=== PATIENT | male | born 1965 | race Caucasian/White ===

== ENCOUNTER 2018-07-05 14:08 | Emergency (ER) | payer OTHER, SELFPAY ==
[2018-07-05 14:19] VITALS: BP 146/92; PULSE 95; RESP 17; TEMP 36.3; O2SAT 99
[2018-07-05 14:48] LABS: Add Manual Diff / Slide Review NO; Basophils Absolute Auto 0 /uL (0-100); Basophils Percent Auto 0.4 % (0-2); Eosinophils Absolute Auto 0 /uL (0-450); Eosinophils Percent Auto 0.2 % (2-4); Hematocrit 43.3 % (41-53); Hemoglobin 14.9 g/dL (13.5-17.5); Lymphocytes Absolute Auto 1300 /uL (1100-4500); Lymphocytes Percent Auto 17.1 % (25-40); Mean Corpuscular HGB Conc 34.5 % (30-36); Mean Corpuscular Volume 89.9 fL (80-100); Monocytes Absolute Auto 300 /uL (0-900); Monocytes Percent Auto 4.4 % (3-14); Neutrophils Absolute Auto 6100 /uL (1500-7000); Neutrophils Percent Auto 77.9 % (50-75); Platelet Count 251 X10^3/uL (150-400); Red Blood Cell Count 4.82 X10^6/uL (4.5-5.9); Red Cell Distribution Width 12.5 % (11.6-14.8); White Blood Cell Count 7.8 X10^3/uL (4.5-11.0)
--- NOTE | 2018-07-05 14:50 | ED.NAVMDI ---
HPI - Nausea/Vomiting/Diarrhea General Chief complaint: Nausea/Vomiting/Diarrhea Stated complaint: faint, light headed, frequent urinatation, agitate Time Seen by Provider: 07/05/18 14:10 Source: patient Mode of arrival: ambulatory Limitations: no limitations History of Present Illness HPI Narrative: 52M with recent attempt to perform a water fast to lose weight presents with (). He drank 4L of water daily for about a weak and started eating again about 4 days ago. He started with clear liquids and felt great, as he advanced his diet his developed ongoing episodes of feeling ok and then lethargic, fuzzy thoughts, panic, and chest tightness. He looked online and thought it was likely hypoglycemia so he started rounding out his diet a bit more. Last night he felt very panicky and this morning had a breakdown and was very tearful. He presents with minimal symptoms. He initially presented to the local fire department and he had a normal glucose but was encouraged to present for evaluation. Related Data Home Medications Medication Instructions Recorded Confirmed albuterol sulfate 90 mcg/actuation 1 inhalation INHALATION Q4-6H PRN 04/08/18 04/08/18 breath activated powder inhaler medical marijuana PO DAILY 04/08/18 04/08/18 Allergies Allergy/AdvReac Type Severity Reaction Status Date / Time No Known Drug Allergies Allergy Unverified 04/08/18 14:46 Review of Systems Review of Systems ROS Unobtainable: All systems reviewed & are unremarkable except as noted in HPI and below Constitutional Denies chills, Denies fever(s), Denies lethargy and Denies weakness Eyes Denies change in vision, Denies eye discharge, Denies irritation and Denies loss of vision ENT Ears, Nose, Mouth, and Throat: Denies change in voice, Denies neck pain and Denies sore throat Cardiovascular Denies chest pain, Denies irregular heart rhythm, Denies lightheadedness, Denies palpitations, Denies dyspnea, Denies dyspnea on exertion and Denies orthopnea Respiratory Denies cough, Denies dyspnea, Denies dyspnea on exertion and Denies wheezing Gastrointestinal Gastrointestinal: Denies abdominal pain, Denies change in bowel habits, Denies diarrhea, Denies nausea and Denies vomiting Genitourinary Denies hematuria, Denies flank pain, Denies urinary incontinence and Denies urinary urgency Musculoskeletal Denies neck pain Integumentary/Breasts Denies pruritus, Denies erythema, Denies rash and Denies wounds Neurologic Denies confusion, Denies loss of vision and Denies weakness Psychiatric Denies anxiety, Denies confusion, Denies depression, Denies homicidal ideation and Denies suicidal ideation Endocrine Denies palpitations Hematologic/Lymphatic Denies easy bruising Allergic/Immunologic Denies wheezing [facility] Social History Smoking Status: Former smoker Exam Narrative Exam Narrative: GENERAL: 52-year-old male, appears younger than stated age, bit anxious This is a well-nourished, well-developed patient, in mild distress. HEAD: Atraumatic. Normocephalic. No temporal or scalp tenderness. EYES: Pupils equal round and reactive. Extraocular motions intact. No scleral icterus. No injection or drainage. ENT: Nose without bleeding, purulent drainage or septal hematoma. Throat without erythema, tonsillar hypertrophy or exudate. Uvula midline. Airway patent. NECK: Trachea midline. No JVD or lymphadenopathy. Supple, nontender, no meningeal signs. CARDIOVASCULAR: Regular rate and rhythm without murmurs, gallops, or rubs. RESPIRATORY: Clear to auscultation. Breath sounds equal bilaterally. No wheezes, rales, or rhonchi. GASTROINTESTINAL: Abdomen soft, non-tender, nondistended. No hepato-splenomegaly, or palpable masses. No guarding. EXTREMITIES: No clubbing, cyanosis, or edema. No joint tenderness, effusion, or edema noted. BACK: Nontender without deformity or crepitance. No flank tenderness. NEURO: AOx3. SKIN: No rash or erythema. Initial Vital Signs Initial Vital Signs: Vital Signs Temperature 97.4 F L 07/05/18 14:19 Pulse Rate 95 H 07/05/18 14:19 Respiratory Rate 17 07/05/18 14:19 Blood Pressure 146/92 H 07/05/18 14:19 Pulse Oximetry 99 07/05/18 14:19 Course Orders Ordered: ED Orders 07/05/18 14:29 EKG-12 Lead Stat 07/05/18 14:35 Complete Blood Count AUTO DIFF Stat Comprehensive Metabolic Panel Stat Troponin & CK Cardiac Panel Stat Vital Signs - 8 hr 07/05/18 14:19 07/05/18 15:17 Temperature 97.4 F L Pulse Rate 95 H 78 Respiratory Rate 17 21 Blood Pressure 146/92 H Blood Pressure [Right Arm] 128/90 Pulse Oximetry 99 98 MDM - Nausea/Vomiting/Diarrhea Lab Data Result diagrams: 07/05/18 14:35 07/05/18 14:35 Lab Results 07/05/18 07/05/18 07/05/18 Range/Units 14:35 14:35 14:35 WBC 7.8 (4.5-11.0) X10^3/uL RBC 4.82 (4.5-5.9) X10^6/uL Hgb 14.9 (13.5-17.5) g/dL Hct 43.3 (41-53) % MCV 89.9 (80-100) fL MCH 31.0 (26-34) PG MCHC 34.5 (30-36) % RDW 12.5 (11.6-14.8) % Plt Count 251 (150-400) X10^3/uL Neut % (Auto) 77.9 H (50-75) % Lymph % (Auto) 17.1 L (25-40) % [place] % (Auto) 4.4 (3-14) % Eos % (Auto) 0.2 L (2-4) % Baso % (Auto) 0.4 (0-2) % Neut # (Auto) 6100 (5574-8767) /uL Lymph # (Auto) 1300 (4863-8572) /uL [place] # (Auto) 300 (0-900) /uL Eos # (Auto) 0 (0-450) /uL Baso # (Auto) 0 (0-100) /uL Sodium 139 (137-145) mmol/L Potassium 4.3 (3.4-5.1) mmol/L Chloride 102 (98-107) mmol/L Carbon Dioxide 26 (22-32) mmol/L BUN 10 (9-20) mg/dL Creatinine 0.60 L (0.66-1.25) mg/dL Estimated GFR > 60.0 (>60) mL/min BUN/Creatinine Ratio 16.7 (6-22) Glucose 124 H (70-100) mg/dL Calcium 9.9 (8.4-10.2) mg/dL Total Bilirubin 0.5 (0.2-1.3) mg/dL AST 18 (17-59) IU/L ALT 26 (21-72) IU/L Alkaline Phosphatase 61 (38-126) U/L Total Creatine Kinase 92 (55-170) U/L CK-MB (CK-2) TNP CK-MB (CK-2) Rel Index TNP Troponin I < 0.012 (0.01-0.034) ng/mL Total Protein 7.7 (6.3-8.2) g/dL Albumin 5.0 (3.5-5.0) g/dL Globulin 2.7 (1.7-4.1) g/dL Albumin/Globulin Ratio 1.9 (1.0-2.8) Urine Dip Bedside Urine Glucose Negative Bedside Urine Bilirubin - Negative Bedside Urine Ketone - Negative Urine Specific [place] 1.015 Bedside Urine Occult Blood - Negative Bedside Urine pH 8.0 Bedside Urine Protein - Negative Bedside Urine Urobilinogen - Negative Bedside Urine Nitrite - Negative Bedside Urine Leukocytes - Negative Esterase Discharge Plan Departure Patient Disposition: Home Clinical Impression: Acute dehydration Malnutrition Qualifiers: Malnutrition type: protein-calorie malnutrition Protein-calorie malnutrition severity: mild Qualified Code(s): E44.1 - Mild protein-calorie malnutrition Instructions: DI for Dehydration -- Adult Activity Restrictions/Additional Instructions: 1. Drink plenty of fluids with frequent small sips. 2. For the next 24 hours a clear liquid diet is advised. After that please employ a brat diet which would include bananas, rice, apples, toast. 3. Please take medications as directed. 4. Please follow-up with your doctor in the next 1-2 days. Call the office for an appointment. 5. Please return to the emergency Department for any worsening or persistent symptoms, such as increasing pain or fever. Prescriptions: No Action medical marijuana PO DAILY RF: 0 albuterol sulfate 90 mcg/actuation aerosol powdr breath activated 1 inhalation INHALATION Q4-6H PRNRF: 0 Referrals: Elida Nettles PA-C [Primary Care Provider] -
--- NOTE | 2018-07-05 14:58 | PC.NURSE ---
Pt started a water fast 11 days ago. He began introducing food into his diet 5 days ago and is concerned he did this too abruptly. Has not slept in 2 days, having intermittent episodes of anxiety, shakiness, chest tightness, shortness of breath, and feeling clammy. States he figured he was having abnormal blood sugar levels and self treated at home with glucose tablets, peanut butter, and crackers.
[2018-07-05 14:59] LABS: Alanine Aminotransferase 26 IU/L (21-72); Albumin Globulin Ratio 1.9 (1.0-2.8); Alkaline Phosphatase 61 U/L (38-126); Aspartate Aminotransferase 18 IU/L (17-59); BUN Creatinine Ratio 16.7 (6-22); Bilirubin Total 0.5 mg/dL (0.2-1.3); Blood Urea Nitrogen 10 mg/dL (9-20); Calcium 9.9 mg/dL (8.4-10.2); Carbon Dioxide 26 mmol/L (22-32); Chloride 102 mmol/L (98-107); Estimated Glomerular Filt Rate > 60.0 mL/min (>60); Globulin 2.7 g/dL (1.7-4.1); Glucose 124 mg/dL (70-100); HEMOLYSIS < 15 (0-50); Potassium 4.3 mmol/L (3.4-5.1); Sodium 139 mmol/L (137-145); Total Protein 7.7 g/dL (6.3-8.2)
[2018-07-05 15:17] VITALS: BP 128/90; PULSE 78; RESP 21; O2SAT 98
[2018-07-05 15:22] LABS: Creatine Kinase 92 U/L (55-170)
[2018-07-05 15:35] LABS: Troponin I < 0.012 ng/mL (0.01-0.034)
--- NOTE | 2018-07-05 15:57 | PC.NURSE ---
Gave patient a banana for snack.
[2018-07-05 16:05] VITALS: PULSE 78; RESP 16; O2SAT 100
== END 2018-07-05 16:06 | disposition home or self-care (01) ==
PROVIDERS: Internal Medicine; Emergency Provider Emergency Medicine; Family Provider Family Medicine; PCP Physician Assistant
DX: E86.0 Dehydration (principal); E44.1 Mild protein-calorie malnutrition; R42 Dizziness and giddiness; R07.89 Other chest pain
CPT/HCPCS: 36591; 80053; 81003; 82550; 84484; 85025; 93005; 93010; 99282; 99284

== ENCOUNTER → 2022-06-11 13:00 | Outpatient (CLI) | payer OTHER, MEDICAID, SELFPAY ==
[2022-06-11 19:02] LABS: Add Manual Diff / Slide Review NO; Basophils Absolute Auto 0 /uL (0-100); Basophils Percent Auto 0.4 % (0-2); Eosinophils Absolute Auto 100 /uL (0-450); Eosinophils Percent Auto 1.2 % (2-4); Hematocrit 40.3 % (41-53); Hemoglobin 13.8 g/dL (13.5-17.5); Lymphocytes Absolute Auto 1100 /uL (1100-4500); Lymphocytes Percent Auto 21.3 % (25-40); Mean Corpuscular HGB Conc 34.2 % (30-36); Mean Corpuscular Hemoglobin 30.7 PG (26-34); Mean Corpuscular Volume 89.8 fL (80-100); Monocytes Absolute Auto 400 /uL (0-900); Neutrophils Absolute Auto 3600 /uL (1500-7000); Neutrophils Percent Auto 70.1 % (50-75); Platelet Count 270 X10^3/uL (150-400); Red Blood Cell Count 4.49 X10^6/uL (4.5-5.9); Red Cell Distribution Width 12.4 % (11.6-14.8); White Blood Cell Count 5.1 X10^3/uL (4.5-11.0)
[2022-06-11 19:16] LABS: Alanine Aminotransferase 21 IU/L (<50); Albumin 4.1 g/dL (3.5-5.0); Albumin Globulin Ratio 1.5 (1.0-2.8); Alkaline Phosphatase 68 U/L (38-126); Aspartate Aminotransferase 22 IU/L (17-59); BUN Creatinine Ratio 21.9 (6-22); Bilirubin Total 0.8 mg/dL (0.2-1.3); Blood Urea Nitrogen 16 mg/dL (9-20); Carbon Dioxide 29 mmol/L (22-32); Chloride 103 mmol/L (98-107); Cholesterol 200 mg/dL (140-199); Estimated Glomerular Filt Rate > 60 mL/min (>60); Globulin 2.7 g/dL (1.7-4.1); Glucose 89 mg/dL (70-100); HDL Cholesterol 48 mg/dL (40-60); HEMOLYSIS < 15 (0-50); LDL Cholesterol Calculated 104 mg/dL (<100); Potassium 4.1 mmol/L (3.4-5.1); Sodium 139 mmol/L (137-145); Total Protein 6.8 g/dL (6.3-8.2); Triglycerides 242 mg/dL (35-150)
[2022-06-11 19:43] LABS: TSH w/ Reflex to FT4 1.08 uIU/mL (0.47-4.68)
== END ==
PROVIDERS: Family Provider Family Medicine; PCP Family Medicine; Visit Provider Family Medicine
DX: R00.2 Palpitations (principal); R07.89 Other chest pain
CPT/HCPCS: 80053; 80061; 81002; 84443; 85025

== ENCOUNTER → 2022-06-21 12:52 | Outpatient (CLI) | payer OTHER, MEDICAID, SELFPAY | PROVIDERS: Family Provider Family Medicine; PCP Family Medicine; Referring Provider Family Medicine; Visit Provider Family Medicine | DX: R00.2 Palpitations (principal) | CPT/HCPCS: 93242 ==

== ENCOUNTER → 2022-07-09 13:51 | Outpatient (CLI) | payer OTHER, MEDICAID, SELFPAY ==
[2022-07-09 20:13] LABS: Prostate Specific Antigen 3.17 ng/mL (0.10-4.00)
== END ==
PROVIDERS: Family Provider Family Medicine; PCP Family Medicine; Visit Provider Family Medicine
DX: Z12.5 Encounter for screening for malignant neoplasm of prostate (principal)
CPT/HCPCS: 84153

== ENCOUNTER → 2024-05-13 10:01 | Outpatient (CLI) | payer OTHER, SELFPAY ==
[2024-05-13 19:42] LABS: Cholesterol 261 mg/dL (140-199); HDL Cholesterol 42 mg/dL (40-60); LDL Cholesterol Calculated 188 mg/dL (<100); Triglycerides 155 mg/dL (35-150)
[2024-05-13 20:07] LABS: Thyroid Stimulating Hormone 1.54 uIU/mL (0.47-4.68)
[2024-05-13 20:08] LABS: Prostate Specific Antigen Scrn 3.68 ng/mL (0.1-4.0)
== END ==
PROVIDERS: Family Provider Family Medicine; PCP Family Medicine; Visit Provider Family Medicine
DX: Z12.5 Encounter for screening for malignant neoplasm of prostate (principal); R07.89 Other chest pain; R06.00 Dyspnea, unspecified; E78.1 Pure hyperglyceridemia; I10 Essential (primary) hypertension; R41.3 Other amnesia
CPT/HCPCS: 80061; 84443; G0103

== ENCOUNTER → 2024-05-21 07:43 | Outpatient (CLI) | payer OTHER, SELFPAY ==
--- NOTE | 2024-05-21 07:45 | DI.ECHO.S_ITS ---
[facility] : : [address] : : [place] : : [id number] : : Phone: [phone] Echocardiogram Report + + :Name: DEONDRE TERRAZAS Study Date: 05/21/2024 Height: 69.5 in : :[facility] ReadingLocation: Weight: 220 lb : : Gender: Male BSA: 2.2 m2 : :: 1965 Age: 58 yrs BP: 146/105 mmHg: :Reason For Study: CHEST TIGHTNESS : :Ordering Physician: BUCK, : :LAITH Performed By: Nhi Koroma : :Referring: LAITH JANE : + + Interpretation Summary 1. The left ventricular contractility is normal. Estimate ejection fraction is greater than 55% with no segmental wall motion abnormalities. Mild concentric LVH. Normal diastolic function. 2. The right ventricular contractility is normal. 3. Borderline left atrial enlargement. All other cardiac chambers are of normal size. 4. Mild aortic insufficiency. 5. No obvious intracardiac shunts. 6. No obvious intracardiac masses nor thrombi. 7. No hemodynamically significant pericardial effusion. 8. Low right-sided filling pressures. Conclusion: Normal biventricular systolic function with mild aortic insufficiency. Procedure: A two-dimensional transthoracic echocardiogram with color flow and Doppler was performed. The study quality was technically adequate. There is no prior echocardiogram noted for this patient. The patient was in sinus bradycardia with heart rates between 56-63 bpm during the exam. Left Ventricle: The left ventricle is normal in size. There is mild concentric left ventricular hypertrophy. Left ventricular wall motion is normal. Right Ventricle: The right ventricle is at the upper limits of normal in size. The right ventricular systolic function is normal. Atria: The left atrium is borderline dilated. Right atrial size is normal. There is no Doppler evidence for an interatrial shunt. Mitral Valve: The mitral valve leaflets appear to open well. There is no mitral annular calcification. There is trace mitral regurgitation. Aortic Valve: The aortic valve is trileaflet. The aortic valve opens well. There is no aortic valve stenosis. There is mild aortic regurgitation. Tricuspid Valve: The tricuspid valve leaflets are thin and pliable. There is trace tricuspid regurgitation. The right ventricular systolic pressure is estimated to be at least 23 mmHg based on an estimated right atrial pressure of 3 mm Hg. Pulmonic Valve: The pulmonic valve is not well visualized. There is no pulmonic valvular regurgitation. Great Vessels: The aortic root is normal size. The ascending aorta is at the upper limits of normal in size. The IVC is of normal diameter and collapses greater than 50% with a sniff. This suggests a low right atrial pressure of 3 mm Hg. Pericardium/ Pleura There is no pericardial effusion. There is no pleural effusion. MMode/2D Measurements & Calculations LVIDd: 5.3 cm LVOT diam: 2.2 cm LVIDs: 3.8 cm Ao root diam: 3.6 cm FS: 27.8 % asc Aorta Diam: 3.9 cm EPSS: 0.96 cm Ao Arch Diam (Prox Trans): 2.4 cm IVSd: 1.1 cm LVPWd: 1.2 cm LV flores. diameter/BSA (cm/m^2): 2.4 LV sys. diameter/BSA (cm/m^2): 1.8 LA A2 area: 27.7 cm2 RA long axis: 5.8 cm LA A4 area: 22.1 cm2 RA area: 18.2 cm2 LA length (vol): 7.1 cm RA vol: 48.7 ml LA vol: 73.3 ml RA : 22.5 ml/m2 LA vol index: 33.9 ml/m2 IVC diam: 1.6 cm RVD1 (basal): 4.1 cm RVD2 (mid): 3.8 cm TAPSE: 2.3 cm Doppler Measurements & Calculations Ao V2 max: 155.7 cm/sec LVOT Max Aidan: 108.3 cm/sec Ao V2 mean: 113.1 cm/sec LV V1 max P.7 mmHg Ao max P.7 mmHg LV V1 VTI: 22.9 cm Ao mean P.5 mmHg LISANDRO(I,D): 2.8 cm2 Ao V2 VTI: 32.3 cm LISANDRO(V,D): 2.7 cm2 sev ratio: 0.71 LISANDRO indexed to BSA (cm^2/m^2): 1.3 AI P1/2t: 1066 msec AI dec slope: 130.2 cm/sec2 MV E max aidan: 70.0 cm/sec TR max aidan: 223.8 cm/sec MV A max aidan: 60.2 cm/sec TR max P.0 mmHg MV E/A: 1.2 PA V2 max: 75.1 cm/sec Med Peak E' Aidan: 8.5 cm/sec PA V2 mean: 54.9 cm/sec E/E' med: 8.2 PA mean P.4 mmHg Lat Peak E' Aidan: 10.8 cm/sec PA pr(Accel): 32.8 mmHg E/E' lat: 6.5 E/e' average: 7.3 MV dec time: 0.22 sec Pulm A Revs Aidan: 26.4 cm/sec SV(LVOT): 88.8 ml Pulm A Revs Dur: 0.08 sec Reading Physician:LAURIE
--- NOTE | 2024-05-21 17:12 | DI.NM.S_ITS ---
DATE OF SERVICE: 05/21/2024 PROCEDURE: Exercise perfusion study. INDICATIONS: Chest pain, hypertension, palpitations. RADIOPHARMACEUTICAL: 27.3 mCi technetium-99m Myoview IV was injected at stress and 12.4 mCi technetium-99m Myoview IV was injected at rest. CARDIAC STRESS: The patient underwent exercise perfusion study under the supervision of an attending staff. The patient walked on Smith protocol for 9 minute and 10 seconds, achieved maximum heart rate 152, which was 93% of target heart rate. Resting blood pressure 155/93 and peak blood pressure 190/80. VERÓNICA -1%. 10.1 METs of workload. Baseline rhythm sinus. During stress, some nonspecific ST-T changes seen. Occasional PVCs. No ventricular tachycardia. No chest pain. He had some shortness of breath. RAW DATA: There is increased subdiaphragmatic activity. GATED STUDY: Resting LV ejection fraction 64% and stress LV ejection fraction 68%. Resting end-diastolic volume 160 mL. TID ratio 0.83, which is within normal limits. Lung/heart ratio 0.27, which is within normal limits. MYOCARDIAL PERFUSION SCAN: Stress supine, resting supine, and stress prone images were compared to each other. Stress supine and resting supine images revealed small size, mildly decreased perfusion of inferior wall, which got resolved during stress prone images, suggestive of diaphragmatic tissue attenuation artifact. No convincing ischemia or infarction pattern seen. CONCLUSION: I will call this study a normal myocardial perfusion study with evidence of diaphragmatic tissue attenuation artifact which got resolved during stress prone images. Good exercise tolerance. Normal hemodynamic response. No anginal symptoms. No obvious ischemic EKG changes. Some occasional PVCs without any ventricular tachycardia. Preserved LV function. Overall, low-risk exercise perfusion study. Jamey Barajas - REGULATORY COMPLIANCE OFFICER/fn/[place] doc#: [id number]/job#: [id number] dd: 05/21/2024 16:56:00 dt: 05/21/2024 17:02:00 DICTATING MD/COPIES TO: Yandel Johnson MD COPIES MNE: TAMMIE;
== END ==
PROVIDERS: Family Provider Family Medicine; PCP Family Medicine; Referring Provider Family Medicine; Visit Provider Family Medicine
DX: R07.89 Other chest pain (principal); I10 Essential (primary) hypertension; I35.1 Nonrheumatic aortic (valve) insufficiency; G47.30 Sleep apnea, unspecified; R00.2 Palpitations; R06.00 Dyspnea, unspecified
CPT/HCPCS: 78452; 93017; 93306; A9502